=== PATIENT | female | born 1950 | race Caucasian/White ===

== ENCOUNTER 2020-04-05 13:00 | Emergency (ER) | payer OTHER ==
[~2020-04-05] VITALS: Ht 160 cm; Wt 54.4 kg
[~2020-04-05 13:00] MED LIST: ALENDRONATE SOD70 MG; ESSENTIAL DAIL1 EACH; ESTRADIOL2 MG PO; SYNTHROID112 MCG PO
== END 2020-04-05 15:35 | disposition home or self-care (01) ==
LOC: ER 13:00
DX: T23.172A Burn of first degree of left wrist, initial encounter (principal); T79.8XXA Other early complications of trauma, initial encounter; X19.XXXA Contact with other heat and hot substances, initial encounter; Y93.89 Activity, other specified; Y92.89 Other specified places as the place of occurrence of the external cause; Y99.8 Other external cause status

== ENCOUNTER 2021-12-04 12:19 | Emergency (ER) | payer OTHER ==
[~2021-12-04] VITALS: Ht 157.5 cm; Wt 54.4 kg
[2021-12-04] MEDS ORDERED: SYNTHROID88 MCG PO (12:32)
[2021-12-04] MEDS ORDERED: COZAAR50 MG PO (12:33)
== END 2021-12-04 16:52 | disposition home or self-care (01) ==
LOC: ER 12:19
DX: S00.93XA Contusion of unspecified part of head, initial encounter (principal); W19.XXXA Unspecified fall, initial encounter; Y93.01 Activity, walking, marching and hiking; Y92.009 Unspecified place in unspecified non-institutional (private) residence as the place of occurrence of the external cause; Y99.9 Unspecified external cause status; R55 Syncope and collapse; I10 Essential (primary) hypertension

== ENCOUNTER 2023-07-15 10:04 | Emergency (ER) | payer OTHER ==
[~2023-07-15] VITALS: Ht 154.9 cm; Wt 65.8 kg
[~2023-07-15 10:04] MED LIST changes: +COZAAR50 MG PO; +SYNTHROID88 MCG PO
[2023-07-15 12:52] LABS: HEMATOCRIT 38.4 % (36.0-45.00); HEMOGLOBIN 12.8 g/dL (12.0-15.00); MEAN CORPUSCULAR HEMOGLOBIN 28.3 pg (27.00-32.0); MEAN CORPUSCULAR HGB CONC 33.2 g/dl (32.0-36.0); PLATELET COUNT 332 K/uL (150-450); RED BLOOD COUNT 4.51 M/uL (4.00-6.00); RED CELL DISTRIBUTION WIDTH 13.8 % (11.5-14.5)
== END 2023-07-15 15:01 | disposition home or self-care (01) ==
LOC: ER 10:04
PROVIDERS: General Practice
DX: B34.9 Viral infection, unspecified (principal); Z20.822 Contact with and (suspected) exposure to COVID-19